=== PATIENT | female | born 2000 ===

== ENCOUNTER → 2024-09-24 | Outpatient (CLI) | payer BC | LOC: LAB 09:52 → LAB SHORT 09:52 | DX: R31.0 Gross hematuria (principal) | CPT/HCPCS: 87086 ==

== ENCOUNTER 2025-06-15 19:59 | Emergency (ER) | payer BC ==
[~2025-06-15] VITALS: Ht 157.5 cm; Wt 80.7 kg
[2025-06-15 20:33] VITALS: BP 117/74
== END 2025-06-16 00:18 | disposition home or self-care (01) ==
LOC: ER 19:59
DX: S93.401A Sprain of unspecified ligament of right ankle, initial encounter (principal); S80.812A Abrasion, left lower leg, initial encounter; S80.811A Abrasion, right lower leg, initial encounter; Z91.018 Allergy to other foods; Z59.89 Other problems related to housing and economic circumstances; W16.132A Fall into natural body of water striking side causing other injury, initial encounter
CPT/HCPCS: 73502; 73610; 99283-25